=== PATIENT | female | born 1950 | race Caucasian/White ===

== ENCOUNTER 2016-09-26 10:05 | Day surgery (SDC) | payer OTHER ==
[~2016-09-26] VITALS: Ht 162.6 cm; Wt 95.2 kg
[~2016-09-26 10:05] MED LIST: ADULT LOW DOSE81 M1 PO; ADVAIR 250/501 DISK IH; CRESTOR10 MG PO; DETROL LA4 MG PO; DIFLUNISAL500 MG PO; DOLOBID500 MG PO; DURAGESIC75 MCG TD; Duragesic TD; EFFEXOR XR150 MG PO; FLEXERIL10 MG PO; GABAPENTIN400 MG PO; GLUCOPHAGE500 MG PO; MELOXICAM15 MG PO; METFORMIN HCL500 MG PO; MOBIC15 MG PO; MOTRIN600 MG PO; NEURONTIN400 M1 PO; NEURONTIN400 MG PO; Neurontin PO; OMEPRAZOLE20 MG PO; OXYCODONE HCL10 MG PO; PRAVACHOL40 MG PO; RESTORIL30 MG PO; TIZANIDINE HCL2 M1 PO; TIZANIDINE HCL2 MG PO; TOVIAZ8 MG PO; VENLAFAXINE HC150 M1 PO; ZANAFLEX4 M1 PO
[2016-09-26 11:09] LABS: POINT-OF-CARE METER ID UU14174212
== END 2016-09-26 13:18 | disposition home or self-care (01) ==
LOC: PAIN 10:05 → SDC 10:30 → PAIN 10:30
PROVIDERS: Anesthesiology Pain Medicine
DX: M47.896 Other spondylosis, lumbar region (principal); M51.36 Other intervertebral disc degeneration, lumbar region; M54.16 Radiculopathy, lumbar region; M48.06 Spinal stenosis, lumbar region; F41.1 Generalized anxiety disorder; K21.9 Gastro-esophageal reflux disease without esophagitis; M50.20 Other cervical disc displacement, unspecified cervical region; G62.9 Polyneuropathy, unspecified
CPT/HCPCS: 82948; J1030; J2250; J3010; S0020

== ENCOUNTER 2016-10-03 07:32 | Day surgery (SDC) | payer OTHER ==
[~2016-10-03] VITALS: Ht 162.6 cm; Wt 95.3 kg
[2016-10-03 08:09] LABS: POINT-OF-CARE METER ID UU14174212
== END 2016-10-03 09:30 | disposition home or self-care (01) ==
LOC: PAIN 07:32 → SDC 08:00 → PAIN 08:00
PROVIDERS: Anesthesiology Pain Medicine
DX: M47.896 Other spondylosis, lumbar region (principal); M48.06 Spinal stenosis, lumbar region; M54.16 Radiculopathy, lumbar region; F41.1 Generalized anxiety disorder; E11.9 Type 2 diabetes mellitus without complications; M51.36 Other intervertebral disc degeneration, lumbar region; K21.9 Gastro-esophageal reflux disease without esophagitis; M50.20 Other cervical disc displacement, unspecified cervical region; G47.30 Sleep apnea, unspecified
CPT/HCPCS: 82948; J1030; J2250; J3010; S0020

== ENCOUNTER 2017-02-06 12:45 | Day surgery (SDC) | payer OTHER ==
[~2017-02-06] VITALS: Ht 162.6 cm; Wt 99.8 kg
[2017-02-06 13:27] LABS: POINT-OF-CARE METER ID UU13113694
== END 2017-02-06 14:30 | disposition home or self-care (01) ==
LOC: PAIN 12:45 → SDC 13:30 → PAIN 14:30
PROVIDERS: Anesthesiology Pain Medicine
DX: M47.26 Other spondylosis with radiculopathy, lumbar region (principal); E11.9 Type 2 diabetes mellitus without complications; K21.9 Gastro-esophageal reflux disease without esophagitis; J44.9 Chronic obstructive pulmonary disease, unspecified; Z87.891 Personal history of nicotine dependence; Z86.73 Personal history of transient ischemic attack (TIA), and cerebral infarction without residual deficits
CPT/HCPCS: 82948; J1030; J2250; J3010

== ENCOUNTER 2017-03-15 12:13 | Day surgery (SDC) | payer OTHER ==
[~2017-03-15] VITALS: Ht 162.6 cm; Wt 99.8 kg
[~2017-03-15 12:13] MED LIST changes: +HEADACHE RELIE1 EAC3 PO
[2017-03-15 13:06] LABS: POINT-OF-CARE METER ID UU13113694
== END 2017-03-15 14:12 | disposition home or self-care (01) ==
LOC: PAIN 12:13 → SDC 12:45 → PAIN 12:45
PROVIDERS: Anesthesiology Pain Medicine
DX: M47.26 Other spondylosis with radiculopathy, lumbar region (principal); M48.06 Spinal stenosis, lumbar region; G89.29 Other chronic pain; M47.22 Other spondylosis with radiculopathy, cervical region; M48.02 Spinal stenosis, cervical region; M79.1 Myalgia; F41.8 Other specified anxiety disorders; J44.9 Chronic obstructive pulmonary disease, unspecified; K21.9 Gastro-esophageal reflux disease without esophagitis; Z79.891 Long term (current) use of opiate analgesic; E11.42 Type 2 diabetes mellitus with diabetic polyneuropathy; G47.30 Sleep apnea, unspecified; Z87.891 Personal history of nicotine dependence; Z79.82 Long term (current) use of aspirin; Z79.84 Long term (current) use of oral hypoglycemic drugs
CPT/HCPCS: 82948; J1030; J1885; J2250; J3010

== ENCOUNTER → 2017-03-27 | Outpatient (CLI) | payer OTHER | END | disposition home or self-care (01) | LOC: MRI 10:16 → RAD 11:00 → MRI 11:00 | DX: M48.02 Spinal stenosis, cervical region (principal); M47.892 Other spondylosis, cervical region; M50.222 Other cervical disc displacement at C5-C6 level | CPT/HCPCS: 72141 ==

== ENCOUNTER 2018-03-11 15:45 | Emergency (ER) | payer OTHER ==
[~2018-03-11] VITALS: Ht 162.6 cm; Wt 96.0 kg
[2018-03-11 16:59] LABS: BASOPHIL (%) 0.9 % (0-1); BASOPHIL COUNT 0.1 K/uL (0-0.1); EOSINOPHIL (%) 0 % (0-5); HEMATOCRIT 43.8 % (36.0-46.0); HEMOGLOBIN 14.9 G/DL (11.9-15.5); IMMATURE GRANULOCYTE (%) 0.2 % (0.0-0.7); LYMPHOCYTE (%) 27.7 % (15-42); LYMPHOCYTE COUNT 2.2 K/uL (1.0-2.8); MCH 28.6 PG (29.0-34.0); MCV 84.1 FL (83-99); MONOCYTE (%) 7.6 % (3-12); MONOCYTE COUNT 0.6 K/uL (0-0.8); NEUTROPHIL (%) 63.6 % (45-76); NEUTROPHIL COUNT 5.1 K/uL (1.8-6.4); PLATELET COUNT 343 K/uL (156-360); RBC DIS.WIDTH-CV 14.4 % (11.8-14.6); RBC DIS.WIDTH-SD 44.2 % (39-53); RED BLOOD COUNT 5.21 M/uL (3.80-5.20)
[2018-03-11 17:11] LABS: ALBUMIN 3.9 g/dL (3.2-4.8)
[2018-03-11 17:12] LABS: CHLORIDE 104 mEq/L (99-109); POTASSIUM 3.5 mEq/L (3.7-5.4); SODIUM 144 mEq/L (136-147)
[2018-03-11 17:14] LABS: GLUCOSE 106 mg/dL (70-99); TOTAL PROTEIN 7.4 g/dL (6.4-8.3)
[2018-03-11 17:16] LABS: TOTAL BILIRUBIN 0.6 mg/dL (0.0-1.0)
[2018-03-11 17:17] LABS: ALKALINE PHOSPHATASE 119 IU/L (3-129)
[2018-03-11 17:18] LABS: GFR ESTIMATE (CALCULATED) 58 mL/min/
[2018-03-11 17:19] LABS: AST (GOT) 14 IU/L (2-34); UREA NITROGEN (BUN) 21 mg/dL (9-23)
[2018-03-11 17:21] LABS: ALT (GPT) 15 IU/L (3-49)
[2018-03-11 19:26] LABS: APPEARANCE CLOUDY ((CLEAR)); BILIRUBIN NEGATIVE; BLOOD NEGATIVE; COLOR AMBER ((YELLOW)); GLUCOSE (STRIP) NEGATIVE; KETONES NEGATIVE; LEUKOCYTES SMALL; NITRITE NEGATIVE; PROTEIN (STRIP) 100; SPECIFIC GRAVITY 1.032 (1.000-1.030)
[2018-03-11 20:24] LABS: RED BLOOD CELLS NONE SEEN /HPF (0-5)
[2018-03-11 20:25] LABS: BACTERIA RARE /HPF; EPITHELIAL CELLS 1+ /HPF; MUCUS 4+ /LPF; UCUL ADDED? YES
[2018-03-11 20:27] LABS: HYALINE CASTS 0-5 /LPF
[2018-03-11] MEDS ORDERED: KEFLEX500 MG PO (20:36)
[2018-03-11 20:52] VITALS: BP 122/75
== END 2018-03-11 20:54 | disposition home or self-care (01) ==
LOC: EME 15:45
PROVIDERS: Emergency Medicine
DX: N39.0 Urinary tract infection, site not specified (principal); E86.0 Dehydration; Z91.81 History of falling; F41.9 Anxiety disorder, unspecified; Z87.442 Personal history of urinary calculi; Z87.891 Personal history of nicotine dependence; Z88.5 Allergy status to narcotic agent
CPT/HCPCS: 70450; 71046; 80053; 81003; 83605; 85025; 87040; 87086; 99281; 99284; J7030